=== PATIENT | female | born 1960 | race American Indian/Alaskan Native ===

== ENCOUNTER 2020-08-16 12:07 | Outpatient (CLI) | payer MEDICARE ==
[2020-08-16 13:13] LABS: ABG Base Excess 1.1 mmol/L (-2.0-3.0); ABG HCO3 25.8 mmol/L (20.0-26.0); ABG Methemoglobin 0.6 % (0.0-1.5); ABG PCO2 41.2 mm Hg; ABG PH 7.414 pH Units (7.350-7.450); ABG PO2 88.7 mm Hg (80.0-90.0)
== END 2020-08-16 12:08 | disposition home or self-care (01) ==
LOC: LAB 12:07
PROVIDERS: ATTEND Internal Medicine
DX: J45.909 Unspecified asthma, uncomplicated (principal); G47.33 Obstructive sleep apnea (adult) (pediatric); J30.89 Other allergic rhinitis
CPT/HCPCS: 36415; 82785; 82803